=== PATIENT | male | born 1955 | race Caucasian/White ===

== ENCOUNTER 2017-09-26 13:11 | Emergency (ER) | payer OTHER ==
[2017-09-26 13:13] VITALS: BP 112/65; PULSE 87; RESP 17; TEMP 98; O2SAT 98
[2017-09-26 14:10] LABS: AUTOMATED NEUTROPHIL # 3.9 TH/MM3 (1.8-7.7); BASOPHIL % 0.7 % (0.0-2.0); EOSINOPHIL % 0.2 % (0.0-4.0); HEMATOCRIT 41.8 % (39.0-51.0); HEMOGLOBIN 14.2 GM/DL (13.0-17.0); LYMPH % 14.9 % (9.0-44.0); LYMPHOCYTE # 0.8 TH/MM3 (1.0-4.8); MEAN CELL VOLUME 97.2 FL (80.0-100.0); MEAN CORPUSCULAR HEMOGLOBIN 33.1 PG (27.0-34.0); MEAN PLATELET VOLUME 7.9 FL (7.0-11.0); MONO % 8.5 % (0.0-8.0); MONOCYTE # 0.4 TH/MM3 (0-0.9); NEUT % 75.7 % (16.0-70.0); PLATELET COUNT 172 TH/MM3 (150-450); RED CELL DISTRIBUTION WIDTH 13.8 % (11.6-17.2); WHITE BLOOD COUNT 5.1 TH/MM3 (4.0-11.0)
[2017-09-26 14:16] LABS: PROTHROMBIN TIME - PATIENT 10.1 SEC (9.8-11.6)
[2017-09-26 14:31] LABS: BICARBONATE 27.2 MEQ/L (21.0-32.0); BLOOD UREA NITROGEN 6 MG/DL (7-18); CALCIUM 9.6 MG/DL (8.5-10.1); CHLORIDE 96 MEQ/L (98-107); CREATININE 0.74 MG/DL (0.60-1.30); GLOMERULAR FILTRATION RATE 107 ML/MIN (>89); GLUCOSE,RANDOM 113 MG/DL (74-106); SODIUM (NA) 132 MEQ/L (136-145)
[2017-09-26 14:35] LABS: TROPONIN I LESS THAN 0.02 NG/ML (0.02-0.05)
--- NOTE | 2017-09-26 15:11 | PD ---
HPI Chief Complaint: Chest Pain Time Seen by Provider: 14:00 Travel History International Travel<30 days: No Contact w/Intl Traveler<30days: No Traveled to known affect area: No History of Present Illness HPI 61-year-old male with a history of peptic ulcer disease and GERD presents to the emergency department complaining of left-sided chest pain that has been intermittent since 8 AM this morning. Patient states that his pain is "annoying " and mild. Patient states nothing makes this better or worse. States the pain started going to his left arm while in the waiting room today. Says this pain started as he was sitting at his desk today. States he also felt nauseous and somewhat diaphoretic associated with this pain. Denies vomiting. Patient denies history of [place], congestive heart failure. States he walks 6-8 miles daily without issues. States he normally gets mid epigastric/ lower sternal pain with his reflux however, this pain is different because it is located on the left side of his chest. Patient has a history of hyperlipidemia, hypertension. He says he took sucralfate and Nexium without relief. Tums did not reduce his pain. PFSH Past Medical History Cardiovascular Problems: Yes (HTN) Social History Alcohol Use: Yes Tobacco Use: Yes Substance Use: No Allergies-Medications (Allergen,Severity, Reaction): Coded Allergies: No Known Allergies (Unverified , 09/26/17) Review of Systems Except as stated in HPI: all other systems reviewed are Neg Physical Exam Narrative GENERAL: WD, WN in NAD SKIN: Focused skin assessment warm/dry. HEAD: Atraumatic. Normocephalic. EYES: Pupils equal and round. No scleral icterus. No injection or drainage. ENT: No nasal bleeding or discharge. Mucous membranes pink and moist. NECK: Trachea midline. No JVD. CARDIOVASCULAR: Regular rate and rhythm. No murmur appreciated. RESPIRATORY: No accessory muscle use. GASTROINTESTINAL: Abdomen soft, non-tender, nondistended. no CVA tenderness MUSCULOSKELETAL: No obvious deformities. No clubbing. No cyanosis. No edema. NEUROLOGICAL: Awake and alert. left sided weakness. Motor grossly within normal limits. Normal speech. PSYCHIATRIC: Appropriate mood and affect; insight and judgment normal. Data Data Last Documented VS Vital Signs Date Time Temp Pulse Resp B/P (MAP) Pulse Ox O2 Delivery O2 Flow Rate FiO2 09/26/17 16:36 71 17 143/72 (95) 98 09/26/17 15:53 Room Air 09/26/17 13:13 98.0 Orders Orders Electrocardiogram (09/26/17 13:37) Basic Metabolic Panel (Bmp) (09/26/17 13:37) Ckmb (Isoenzyme) Profile (09/26/17 13:37) Complete Blood Count With Diff (09/26/17 13:37) Magnesium (Mg) (09/26/17 13:37) Prothrombin Time / Inr (Pt) (09/26/17 13:37) Act Partial Throm Time (Ptt) (09/26/17 13:37) Troponin I (09/26/17 13:37) Lipase (09/26/17 13:37) Chest, Pa & Lat (09/26/17 13:37) CKMB (09/26/17 13:50) CKMB% (09/26/17 13:50) Ed Discharge Order (09/26/17 16:21) Labs Laboratory Tests Test 09/26/17 13:50 White Blood Count 5.1 TH/MM3 Red Blood Count 4.30 MIL/MM3 Hemoglobin 14.2 GM/DL Hematocrit 41.8 % Mean Corpuscular Volume 97.2 FL Mean Corpuscular Hemoglobin 33.1 PG Mean Corpuscular Hemoglobin Concent 34.0 % Red Cell Distribution Width 13.8 % Platelet Count 172 TH/MM3 Mean Platelet Volume 7.9 FL Neutrophils (%) (Auto) 75.7 % Lymphocytes (%) (Auto) 14.9 % Monocytes (%) (Auto) 8.5 % Eosinophils (%) (Auto) 0.2 % Basophils (%) (Auto) 0.7 % Neutrophils # (Auto) 3.9 TH/MM3 Lymphocytes # (Auto) 0.8 TH/MM3 Monocytes # (Auto) 0.4 TH/MM3 Eosinophils # (Auto) 0.0 TH/MM3 Basophils # (Auto) 0.0 TH/MM3 CBC Comment DIFF FINAL Differential Comment Prothrombin Time 10.1 SEC Prothromb Time International Ratio 1.0 RATIO Activated Partial Thromboplast Time 23.6 SEC Blood Urea Nitrogen 6 MG/DL Creatinine 0.74 MG/DL Random Glucose 113 MG/DL Calcium Level 9.6 MG/DL Magnesium Level 2.0 MG/DL Sodium Level 132 MEQ/L Potassium Level 4.3 MEQ/L Chloride Level 96 MEQ/L Carbon Dioxide Level 27.2 MEQ/L Anion Gap 9 MEQ/L Estimat Glomerular Filtration Rate 107 ML/MIN Total Creatine Kinase 214 U/L Creatine Kinase MB 2.9 NG/ML Troponin I LESS THAN 0.02 NG/ML Lipase 84 U/L MDM Medical Decision Making Medical Screen Exam Complete: Yes Emergency Medical Condition: Yes Differential Diagnosis angina, NSTEMI, unstable angina, Narrative Course 61-year-old male with a history of peptic ulcer disease and GERD presents to the emergency department complaining of left-sided chest pain that has been intermittent since 8 AM this morning. Patient states that his pain is "annoying " and mild. Patient states nothing makes this better or worse. States the pain started going to his left arm while in the waiting room today. Says this pain started as he was sitting at his desk today. States he also felt nauseous and somewhat diaphoretic associated with this pain. Denies vomiting. Patient denies history of [place], congestive heart failure. States he walks 6-8 miles daily without issues. States he normally gets mid epigastric lower sternal pain with his reflux however, this pain is different because it is located on the left side of his chest. Patient has a history of hyperlipidemia, hypertension. He says he took sucralfate and Nexium without relief. Tums did not reduce his pain. Says he took an ASA today. EKG shows sinus rhythm without STEMI pattern. Vital signs stable. Last Impressions Chest X-Ray 09/26/17 1337 Signed Impressions: Service Date/Time: Tuesday, September 26, 2017 14:08 - CONCLUSION: Moderate hyperinflation without infiltrate or failure. Rolando Dinh MD FACR Laboratory Tests Test 09/26/17 13:50 White Blood Count 5.1 TH/MM3 Red Blood Count 4.30 MIL/MM3 Hemoglobin 14.2 GM/DL Hematocrit 41.8 % Mean Corpuscular Volume 97.2 FL Mean Corpuscular Hemoglobin 33.1 PG Mean Corpuscular Hemoglobin Concent 34.0 % Red Cell Distribution Width 13.8 % Platelet Count 172 TH/MM3 Mean Platelet Volume 7.9 FL Neutrophils (%) (Auto) 75.7 % Lymphocytes (%) (Auto) 14.9 % Monocytes (%) (Auto) 8.5 % Eosinophils (%) (Auto) 0.2 % Basophils (%) (Auto) 0.7 % Neutrophils # (Auto) 3.9 TH/MM3 Lymphocytes # (Auto) 0.8 TH/MM3 Monocytes # (Auto) 0.4 TH/MM3 Eosinophils # (Auto) 0.0 TH/MM3 Basophils # (Auto) 0.0 TH/MM3 CBC Comment DIFF FINAL Differential Comment Prothrombin Time 10.1 SEC Prothromb Time International Ratio 1.0 RATIO Activated Partial Thromboplast Time 23.6 SEC Blood Urea Nitrogen 6 MG/DL Creatinine 0.74 MG/DL Random Glucose 113 MG/DL Calcium Level 9.6 MG/DL Magnesium Level 2.0 MG/DL Sodium Level 132 MEQ/L Potassium Level 4.3 MEQ/L Chloride Level 96 MEQ/L Carbon Dioxide Level 27.2 MEQ/L Anion Gap 9 MEQ/L Estimat Glomerular Filtration Rate 107 ML/MIN Total Creatine Kinase 214 U/L Creatine Kinase MB 2.9 NG/ML Troponin I LESS THAN 0.02 NG/ML Lipase 84 U/L I discussed this case with my attending Dr. Starr who agrees with admitting to [facility]. He has a change in his pain with radiation and associated symptoms. After discussing the plan with the patient, he said that he did not want to stay. I discussed the risks v benefits of leaving. I discussed the importance of following up in an outpatient setting if he did not want to stay. He understood and wants to leave. Says he will return if he changes his mind. Pt signed out AMA. Pt is in [place] until the end of October and say he would follow up with a exercise planner at home. AMA: The risks of leaving against medical advice without further evaluation treatment were discussed with the patient. These risks include cardiac dysfunction, cardiac dysrhythmia, possible heart attack, possible stroke or . The patient indicated understanding of these risks and appeared to have the capacity to make this decision. Diagnosis Primary Impression: Angina at rest Referrals: Site Medical Director Additional Instructions: If your symptoms return, return to the ED immediately. I recommend you follow up with your primary care physician and exercise planner once you return home. Disposition: 07 AGAINST MEDICAL ADVICE Condition: Stable Antonia Castañeda Sep 26, 2017 15:11
--- NOTE | 2017-09-26 15:29 | RADRPT ---
EXAM DATE/TIME: 09/26/2017 14:08 [facility] COMPARISON: No previous studies available for comparison. INDICATIONS : Chest discomfort today. MEDICAL HISTORY : Hypertension. SURGICAL HISTORY : None. ENCOUNTER: Initial ACUITY: 1 day PAIN SCORE: 2/10 LOCATION: Left chest FINDINGS: Moderate hyperinflation without infiltrate or failure. The portion of the bony skeleton visualized is unremarkable. There is no pneumothorax. CONCLUSION: Moderate hyperinflation without infiltrate or failure. Rolando Dinh MD FACR on September 26, 2017 at 15:27 Board Certified Radiologist. This report was verified electronically.
[2017-09-26 15:53] VITALS: BP 138/72; PULSE 77; RESP 17; O2SAT 98
[2017-09-26 16:36] VITALS: BP 143/72
--- NOTE | 2017-09-27 14:36 | EKG ---
Date Performed: 09/26/2017 Time Performed: 13:47:29 PTAGE: 61 years EKG: Sinus rhythm NORMAL ECG NO PREVIOUS TRACING DOCTOR: Luis More Interpretating Date/Time 09/27/2017 14:30:42
== END 2017-09-26 16:38 | disposition left against medical advice (07) ==
LOC: NEPC 13:11
DX: I20.8 Other forms of angina pectoris (principal); K21.9 Gastro-esophageal reflux disease without esophagitis; Z72.0 Tobacco use; Z79.899 Other long term (current) drug therapy
CPT/HCPCS: 71046; 80048; 82550; 82552; 83690; 83735; 84484; 85025; 85610; 85730; 93005